=== PATIENT | male | born 1955 | race Caucasian/White ===

== ENCOUNTER 2018-10-10 17:47 | Inpatient (IN) | payer OTHER ==
[~2018-10-10] VITALS: Ht 175.3 cm; Wt 122.6 kg
[2018-10-10] MEDS ORDERED: LISI-170 PO (18:07)
[2018-10-10] MEDS ORDERED: ASPI-496 PO (18:07)
[2018-10-10] MEDS ORDERED: LISI5TAB7 PO (18:07)
--- NOTE | 2018-10-10 18:12 | NUR ---
MOVING PATIENT TO ROOM 21.
--- NOTE | 2018-10-10 18:21 | NUR ---
RECEIVED REPORT FROM ZAK. THIS IS A 63 YEAR OLD MALE WHO WAS BIB BY AMBULANCE DUE TO POSSIBLE HEAT STROKE. PT WAS TRAVELING IN A CAR FROM [place] WITH NO AIR CONDITION TO THE [employer] SHOW HOT OCTOBER NIGHTS. IN PARKING GARAGE AT CIRCUS CIRCUS AND FELT WEAKNESS, HEAT, AND LOSS OF BOWEL.
--- NOTE | 2018-10-10 18:24 | NUR ---
LAB IN FOR BLOOD CULTURES AND LABS. IV INFUSING WELL. 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
[2018-10-10] MEDS ORDERED: SODIUM CHLORIDE 0.9% 1,000ML IVBOLUS ONE (18:30)
[2018-10-10 18:41] LABS: BASOPHILS # (AUTO) 0.01 x10^3/uL (0-0.1); BASOPHILS % (AUTO) 0 % (0-1); EOSINOPHILS # (AUTO) 0.36 x10^3/uL (0-0.4); EOSINOPHILS % (AUTO) 2 % (1-7); LYMPHOCYTES # (AUTO) 1.44 x10^3/uL (1-3.4); LYMPHOCYTES % (AUTO) 9 % (22-44); MD NO; MEAN CORPUSCULAR HGB CONC 34.5 g/dL (33.2-36.2); MEAN CORPUSCULAR VOLUME 95.6 fL (81-97); MEAN PLATELET VOLUME 10.3 fL (7.4-10.4); MONOCYTES # (AUTO) 1.04 x10^3/uL (0.2-0.8); MONOCYTES % (AUTO) 7 % (2-9); NEUTROPHILS # (AUTO) 13.16 x10^3/uL (1.8-6.8); NEUTROPHILS % (AUTO) 82 % (42-75); PLATELET COUNT 239 x10^3/uL (130-400); RED BLOOD COUNT 5.18 x10^6/uL (4.38-5.82); RED CELL DISTRIBUTION WIDTH 13.6 % (9.4-14.8)
--- NOTE | 2018-10-10 18:42 | NUR ---
PT INCONTINENT OF STOOL, CLEANED, PT TOLERATED WELL. ICE PACKS GIVEN AND PLACED IN ARM PITS, DRINKING WATER WELL. PT STATES HE IS FEELING BETTER.
[2018-10-10 18:50] LABS: ALANINE AMINOTRANSFERASE 26 U/L (12-78); ALBUMIN 3.5 g/dL (3.4-5.0); ANION GAP 10 mmol/L (5-15); CALCIUM 8.5 mg/dL (8.5-10.1); CHLORIDE 110 mmol/L (98-107); CREATININE 2.32 mg/dL (0.7-1.3)
[2018-10-10 18:55] LABS: ALKALINE PHOSPHATASE 61 U/L (45-117); BILIRUBIN,TOTAL 0.7 mg/dL (0.2-1.0); CREATINE KINASE, TOTAL 61 U/L (39-308); TOTAL PROTEIN 6.3 g/dL (6.4-8.2)
--- NOTE | 2018-10-10 18:55 | NUR ---
REPORT TO ERIC PONCE, PLAN OF CARE DISCUSSED.
[2018-10-10 19:00] LABS: TROPONIN I 0.121 ng/mL (0.000-0.045)
[2018-10-10] MEDS ORDERED: ASPIRIN 81 MG TABLET CHEW ONE ×2 (19:11→19:18)
[2018-10-10] MEDS ORDERED: HEPARIN 25,000 UNITS/500ML PMX 500 ML ONE (19:15)
[2018-10-10] MEDS ORDERED: HEPARIN 5,000 UNITS/ML, 1ML ONE (19:18)
[2018-10-10] MEDS ORDERED: CEFTRIAXONE PMX 1GM/50ML 50 ML ONE (19:18)
[2018-10-10] MEDS ORDERED: ASPIRIN 81 MG TABLET CHEW PO ONE (19:30)
[2018-10-10] MEDS: HEPARIN 25,000 UNITS/500ML PMX 500 ML IV PRN (19:30)
[2018-10-10] MEDS ORDERED: SODIUM CHLORIDE 0.9%, 500ML IVBOLUS ONE (19:30)
[2018-10-10] MEDS ORDERED: HEPARIN 5,000 UNITS/ML, 1ML IV ONE (19:30)
[2018-10-10] MEDS ORDERED: CEFTRIAXONE PMX 1GM/50ML 50 ML IV ONE (19:30)
[2018-10-10] MEDS: HEPARIN 5,000 UNITS/ML, 1ML IV PRN (19:31)
[2018-10-10] MEDS ORDERED: SODIUM CHLORIDE 0.9% 1,000 ML IV SCH (19:55)
[2018-10-10] MEDS ORDERED: ONDANSETRON 2MG/ML, 2ML IVPush PRN (20:00)
[2018-10-10] MEDS ORDERED: ACETAMINOPHEN 325 MG TABLET PO PRN (20:00)
[2018-10-10 20:11] LABS: CULTURE INDICATED? YES; MICROSCOPIC INDICATED
[2018-10-10 20:58] VITALS: BP 144/85
[2018-10-10 21:03] VITALS: BP 130/78
[2018-10-10 21:07] VITALS: BP 141/88
[2018-10-11] VITALS (12 sets, daily range): BP systolic 135–161; BP diastolic 84–96
[2018-10-11] MEDS ORDERED: AMLO10TA8 PO (01:17)
[2018-10-11 02:02] LABS: BASOPHILS # (AUTO) 0.01 x10^3/uL (0-0.1); BASOPHILS % (AUTO) 0 % (0-1); EOSINOPHILS # (AUTO) 0.06 x10^3/uL (0-0.4); EOSINOPHILS % (AUTO) 0 % (1-7); LYMPHOCYTES # (AUTO) 2.67 x10^3/uL (1-3.4); LYMPHOCYTES % (AUTO) 16 % (22-44); MD NO; MEAN CORPUSCULAR HEMOGLOBIN 32.7 pg (27.5-34.5); MEAN CORPUSCULAR HGB CONC 34.2 g/dL (33.2-36.2); MEAN CORPUSCULAR VOLUME 95.6 fL (81-97); MEAN PLATELET VOLUME 9.9 fL (7.4-10.4); MONOCYTES # (AUTO) 0.99 x10^3/uL (0.2-0.8); MONOCYTES % (AUTO) 6 % (2-9); NEUTROPHILS % (AUTO) 77 % (42-75); PLATELET COUNT 245 x10^3/uL (130-400); RED BLOOD COUNT 5.04 x10^6/uL (4.38-5.82); RED CELL DISTRIBUTION WIDTH 13.7 % (9.4-14.8)
[2018-10-11 02:11] LABS: ANION GAP 8 mmol/L (5-15); CALCIUM 8.7 mg/dL (8.5-10.1); CHLORIDE 110 mmol/L (98-107); CREATININE 1.54 mg/dL (0.7-1.3)
[2018-10-11] MEDS: HEPARIN 5,000 UNITS/ML, 1ML IV PRN ×3 (02:23→17:37)
[2018-10-11] MEDS ORDERED: ACETAMINOPHEN 325 MG TABLET PO PRN (09:00)
[2018-10-11] MEDS: SODIUM CHLORIDE 0.9% 1,000 ML IV SCH ×2 (10:21→19:45)
[2018-10-11 12:33] LABS: TROPONIN I 0.158 ng/mL (0.000-0.045)
[2018-10-11] MEDS: HEPARIN 25,000 UNITS/500ML PMX 500 ML IV PRN (18:29)
[2018-10-11] MEDS ORDERED: ATORVASTATIN 40 MG TABLET PO SCH (21:00)
[2018-10-11] MEDS ORDERED: HYDR25TA6 PO (21:19)
[2018-10-12] MEDS: HEPARIN 5,000 UNITS/ML, 1ML IV PRN (00:38)
[2018-10-12 01:01] VITALS: BP 144/83
[2018-10-12 06:32] LABS: BASOPHILS # (AUTO) 0.04 x10^3/uL (0-0.1); BASOPHILS % (AUTO) 0 % (0-1); EOSINOPHILS % (AUTO) 5 % (1-7); LYMPHOCYTES # (AUTO) 2.63 x10^3/uL (1-3.4); LYMPHOCYTES % (AUTO) 25 % (22-44); MD NO; MEAN CORPUSCULAR HEMOGLOBIN 32.6 pg (27.5-34.5); MEAN PLATELET VOLUME 10.1 fL (7.4-10.4); MONOCYTES # (AUTO) 0.81 x10^3/uL (0.2-0.8); MONOCYTES % (AUTO) 8 % (2-9); NEUTROPHILS # (AUTO) 6.64 x10^3/uL (1.8-6.8); NEUTROPHILS % (AUTO) 63 % (42-75); PLATELET COUNT 222 x10^3/uL (130-400); RED BLOOD COUNT 4.91 x10^6/uL (4.38-5.82); RED CELL DISTRIBUTION WIDTH 13.4 % (9.4-14.8)
[2018-10-12 06:40] LABS: ANION GAP 7 mmol/L (5-15); CHLORIDE 111 mmol/L (98-107)
[2018-10-12 08:21] VITALS: BP 157/87
[2018-10-12] MEDS ORDERED: LISINOPRIL 10 MG TABLET PO SCH (09:00)
[2018-10-12] MEDS ORDERED: AMLODIPINE 2.5 MG TABLET PO SCH (09:00)
[2018-10-12 09:35] LABS: TROPONIN I 0.122 ng/mL (0.000-0.045)
[2018-10-12] MEDS ORDERED: AMLO2.5T5 PO (09:39)
== END 2018-10-12 12:00 | disposition home or self-care (01) | DRG 871 ==
LOC: ED 18:43 → EDIP 20:23 → 5SO 20:56 → DCLOUNGE 10-12 11:58
PROVIDERS: ADMIT Internal Medicine; ATTEND Internal Medicine
DX: A41.9 Sepsis, unspecified organism (principal); I21.A1 Myocardial infarction type 2; E87.2 Acidosis; N17.9 Acute kidney failure, unspecified; E66.01 Morbid (severe) obesity due to excess calories; Z68.39 Body mass index [BMI] 39.0-39.9, adult; E86.0 Dehydration; G47.00 Insomnia, unspecified; I10 Essential (primary) hypertension; R65.20 Severe sepsis without septic shock; T67.5XXA Heat exhaustion, unspecified, initial encounter; X30.XXXA Exposure to excessive natural heat, initial encounter; Z79.82 Long term (current) use of aspirin; Z88.1 Allergy status to other antibiotic agents
CPT/HCPCS: 36415; 71045; 80048; 80053; 81001; 82550; 83605; 83735; 83880; 84145; 84484; 85025; 85520; 87040; 87086; 93005; 93306; 96361; 96374; G0378; J0696; J1644; J7030; J7040